=== PATIENT | male | born 1955 | race Caucasian/White ===

== ENCOUNTER 2019-05-08 00:14 | Inpatient (IN) | payer MEDICARE ==
[~2019-05-08] VITALS: Ht 188 cm; Wt 97.1 kg
[2019-05-09] MEDS ORDERED: ACETAMINOPHEN 325 MG TABLET PO PRN (15:15)
[2019-05-09 15:42] VITALS: BP 125/75
[2019-05-09 15:57] VITALS: BP 124/63
[2019-05-09] MEDS: GlipiZIDE 5 MG TABLET PO SCH (17:21)
[2019-05-09 18:26] LABS: GLUCOMETER DEV NAME(LOC) 2WR.2; GLUCOSE,POINT OF CARE 162 MG/DL (70-110)
[2019-05-09] MEDS ORDERED: PNEUMOCOCCAL VACCINE POLYVALENT 0.5 ML VIAL [PPSV23] IM ONE (20:15)
[2019-05-09 20:30] VITALS: BP 125/89
[2019-05-09] MEDS: CARVEDILOL 6.25 MG TABLET PO SCH (20:43)
[2019-05-09] MEDS: DOCUSATE SODIUM 100 MG CAPSULE PO SCH (20:43)
[2019-05-09] MEDS: SENNA 187 MG TABLET PO SCH (20:43)
[2019-05-09] MEDS: ATORVASTATIN CALCIUM 40 MG TABLET PO SCH (20:43)
[2019-05-09 21:25] LABS: GLUCOMETER DEV NAME(LOC) 2WR.2; GLUCOSE,POINT OF CARE 152 MG/DL (70-110)
[2019-05-09 23:30] VITALS: BP 105/68
[2019-05-10 05:45] LABS: GLUCOMETER DEV NAME(LOC) 2WR.1C; GLUCOSE,POINT OF CARE 138 MG/DL (70-110)
[2019-05-10 07:05] LABS: BASOPHILS % (AUTO) 0.7 % (0.0-2.0); EOSINOPHILS % (AUTO) 1.9 % (1.0-6.0); HEMATOCRIT 44.4 % (41-53); HEMOGLOBIN 15.8 g/dL (13.5-17.5); LYMPHOCYTES # (AUTO) 2.2 K/uL (1.0-4.8); LYMPHOCYTES % (AUTO) 39.6 % (22.0-44.0); MEAN CORPUSCULAR HEMOGLOBIN 31.7 pg (26.0-34.0); MEAN CORPUSCULAR HGB CONC 35.6 G/dL (31.0-37.0); MEAN CORPUSCULAR VOLUME 89 fL (80-100); MONOCYTES # (AUTO) 0.4 K/uL (0.1-1.0); MONOCYTES % (AUTO) 7.4 % (2.0-9.0); NEUTROPHILS # (AUTO) 2.8 K/uL (1.8-7.7); NEUTROPHILS % (AUTO) 50.4 % (40.0-70.0); PLATELET COUNT (AUTO) 143 K/uL (150-450); RED BLOOD CELL COUNT(AUTO) 4.98 MIL/uL (4.50-5.90); RED CELL DISTRIBUTION WIDTH 13.9 % (11.5-14.5)
[2019-05-10 07:27] LABS: ALBUMIN 3.1 g/dL (3.4-5.0); BILIRUBIN,TOTAL 0.6 mg/dL (0.1-1.0); CREATININE 1.23 mg/dL (0.60-1.30); TOTAL PROTEIN, SERUM 6.4 g/dL (6.4-8.2)
[2019-05-10 07:35] LABS: CALCIUM, TOTAL 9.1 mg/dL (8.8-10.5)
[2019-05-10 07:45] VITALS: BP 108/71
[2019-05-10] MEDS: GlipiZIDE 5 MG TABLET PO SCH ×2 (08:19→16:53)
[2019-05-10] MEDS: FLUoxetine HCL 20 MG CAPSULE PO SCH (09:00)
[2019-05-10] MEDS: ASPIRIN 81 MG EC TABLET PO SCH (10:12)
[2019-05-10] MEDS: CARVEDILOL 6.25 MG TABLET PO SCH ×2 (10:12→20:48)
[2019-05-10] MEDS: LISINOPRIL 5 MG TABLET PO SCH (10:12)
[2019-05-10] MEDS: FUROSEMIDE 20 MG TABLET PO SCH (10:12)
[2019-05-10] MEDS: DOCUSATE SODIUM 100 MG CAPSULE PO SCH ×2 (10:13→20:48)
[2019-05-10] MEDS ORDERED: DEXTROSE 50%-WATER 25 GM/50 ML SYRINGE IVP PRN (12:00)
[2019-05-10 16:00] VITALS: BP 103/71
[2019-05-10] MEDS: MetFORMIN HCL 500 MG TABLET PO SCH (16:53)
[2019-05-10 17:30] LABS: GLUCOMETER DEV NAME(LOC) 2WR.1C; GLUCOSE,POINT OF CARE 124 MG/DL (70-110)
[2019-05-10 18:22] LABS: GLUCOMETER DEV NAME(LOC) 2WR.1C; GLUCOSE,POINT OF CARE 120 MG/DL (70-110)
[2019-05-10] MEDS: ATORVASTATIN CALCIUM 40 MG TABLET PO SCH (20:48)
[2019-05-10] MEDS: SENNA 187 MG TABLET PO SCH (20:48)
[2019-05-10 20:53] VITALS: BP 116/63
[2019-05-10 21:51] LABS: GLUCOMETER DEV NAME(LOC) 2WR.2; GLUCOSE,POINT OF CARE 114 MG/DL (70-110)
[2019-05-11 06:00] VITALS: BP 133/69
[2019-05-11 06:34] LABS: GLUCOMETER DEV NAME(LOC) 2WR.1C; GLUCOSE,POINT OF CARE 142 MG/DL (70-110)
[2019-05-11] MEDS: INSULIN LISPRO 100 UNITS/ML SQ PRN (08:06)
[2019-05-11] MEDS: DOCUSATE SODIUM 100 MG CAPSULE PO SCH ×2 (08:08→20:37)
[2019-05-11] MEDS: FUROSEMIDE 20 MG TABLET PO SCH (08:08)
[2019-05-11] MEDS: GlipiZIDE 5 MG TABLET PO SCH ×2 (08:08→16:57)
[2019-05-11] MEDS: LISINOPRIL 5 MG TABLET PO SCH (08:08)
[2019-05-11] MEDS: CARVEDILOL 6.25 MG TABLET PO SCH ×2 (08:08→20:37)
[2019-05-11] MEDS: MetFORMIN HCL 500 MG TABLET PO SCH ×2 (08:08→16:57)
[2019-05-11] MEDS: FLUoxetine HCL 20 MG CAPSULE PO SCH (08:09)
[2019-05-11] MEDS: ASPIRIN 81 MG EC TABLET PO SCH (08:09)
[2019-05-11 09:02] VITALS: BP 112/80
[2019-05-11 13:13] LABS: GLUCOMETER DEV NAME(LOC) 2WR.2; GLUCOSE,POINT OF CARE 96 MG/DL (70-110)
[2019-05-11 16:00] VITALS: BP 148/97
[2019-05-11 18:57] LABS: GLUCOMETER DEV NAME(LOC) 2WR.1C; GLUCOSE,POINT OF CARE 128 MG/DL (70-110)
[2019-05-11 20:31] VITALS: BP 111/59
[2019-05-11] MEDS: SENNA 187 MG TABLET PO SCH (20:37)
[2019-05-11] MEDS: ATORVASTATIN CALCIUM 40 MG TABLET PO SCH (20:37)
[2019-05-11 21:44] LABS: GLUCOMETER DEV NAME(LOC) 2WR.2; GLUCOSE,POINT OF CARE 114 MG/DL (70-110)
[2019-05-11 23:30] VITALS: BP 94/54
[2019-05-12 05:48] LABS: GLUCOMETER DEV NAME(LOC) 2WR.1C; GLUCOSE,POINT OF CARE 122 MG/DL (70-110)
[2019-05-12] MEDS: MetFORMIN HCL 500 MG TABLET PO SCH ×2 (07:45→16:52)
[2019-05-12] MEDS: GlipiZIDE 5 MG TABLET PO SCH ×2 (07:45→16:52)
[2019-05-12] MEDS: FLUoxetine HCL 20 MG CAPSULE PO SCH (08:44)
[2019-05-12] MEDS: CARVEDILOL 6.25 MG TABLET PO SCH ×2 (08:44→20:23)
[2019-05-12] MEDS: LISINOPRIL 5 MG TABLET PO SCH (08:44)
[2019-05-12] MEDS: ASPIRIN 81 MG EC TABLET PO SCH (08:45)
[2019-05-12] MEDS: FUROSEMIDE 20 MG TABLET PO SCH (08:45)
[2019-05-12] MEDS: DOCUSATE SODIUM 100 MG CAPSULE PO SCH ×2 (08:45→20:24)
[2019-05-12 08:47] VITALS: BP 131/72
[2019-05-12 12:47] LABS: GLUCOMETER DEV NAME(LOC) 2WR.2; GLUCOSE,POINT OF CARE 140 MG/DL (70-110)
[2019-05-12 17:44] VITALS: BP 107/60
[2019-05-12] MEDS: ATORVASTATIN CALCIUM 40 MG TABLET PO SCH (20:23)
[2019-05-12] MEDS: MELATONIN 5 MG TABLET PO PRN (20:23)
[2019-05-12] MEDS: SENNA 187 MG TABLET PO SCH (20:24)
[2019-05-12 21:29] LABS: GLUCOMETER DEV NAME(LOC) 2WR.2; GLUCOSE,POINT OF CARE 124 MG/DL (70-110)
[2019-05-12 22:16] LABS: GLUCOMETER DEV NAME(LOC) 2WR.1C; GLUCOSE,POINT OF CARE 122 MG/DL (70-110)
[2019-05-13 05:54] LABS: GLUCOMETER DEV NAME(LOC) 2WR.2; GLUCOSE,POINT OF CARE 136 MG/DL (70-110)
[2019-05-13 06:28] VITALS: BP 127/74
[2019-05-13 07:55] VITALS: BP 117/61
[2019-05-13] MEDS: ASPIRIN 81 MG EC TABLET PO SCH (08:43)
[2019-05-13] MEDS: CARVEDILOL 6.25 MG TABLET PO SCH ×2 (08:43→21:26)
[2019-05-13] MEDS: DOCUSATE SODIUM 100 MG CAPSULE PO SCH ×2 (08:43→21:00)
[2019-05-13] MEDS: MetFORMIN HCL 500 MG TABLET PO SCH ×2 (08:43→16:28)
[2019-05-13] MEDS: LISINOPRIL 5 MG TABLET PO SCH (08:44)
[2019-05-13] MEDS: FUROSEMIDE 20 MG TABLET PO SCH (08:44)
[2019-05-13] MEDS: GlipiZIDE 5 MG TABLET PO SCH ×2 (08:44→16:28)
[2019-05-13] MEDS: FLUoxetine HCL 20 MG CAPSULE PO SCH (08:44)
[2019-05-13] MEDS: INSULIN LISPRO 100 UNITS/ML SQ PRN (12:34)
[2019-05-13 16:20] VITALS: BP 120/67
[2019-05-13 18:06] LABS: GLUCOMETER DEV NAME(LOC) 2WR.2; GLUCOSE,POINT OF CARE 110 MG/DL (70-110)
[2019-05-13] MEDS: SENNA 187 MG TABLET PO SCH (21:00)
[2019-05-13] MEDS: MELATONIN 5 MG TABLET PO PRN (21:26)
[2019-05-13] MEDS: ATORVASTATIN CALCIUM 40 MG TABLET PO SCH (21:26)
[2019-05-13 21:35] VITALS: BP 132/58
[2019-05-13 22:35] LABS: GLUCOMETER DEV NAME(LOC) 2WR.1C; GLUCOSE,POINT OF CARE 165 MG/DL (70-110)
[2019-05-13 22:36] LABS: GLUCOMETER DEV NAME(LOC) 2WR.1C; GLUCOSE,POINT OF CARE 117 MG/DL (70-110)
[2019-05-14 05:33] VITALS: BP 106/68
[2019-05-14 06:00] LABS: GLUCOMETER DEV NAME(LOC) 2WR.2; GLUCOSE,POINT OF CARE 109 MG/DL (70-110)
[2019-05-14 08:05] VITALS: BP 114/69
[2019-05-14] MEDS: DOCUSATE SODIUM 100 MG CAPSULE PO SCH ×2 (09:00→20:41)
[2019-05-14] MEDS: ASPIRIN 81 MG EC TABLET PO SCH (10:09)
[2019-05-14] MEDS: FUROSEMIDE 20 MG TABLET PO SCH (10:10)
[2019-05-14] MEDS: LISINOPRIL 5 MG TABLET PO SCH (10:10)
[2019-05-14] MEDS: CARVEDILOL 6.25 MG TABLET PO SCH ×2 (10:10→20:41)
[2019-05-14] MEDS: MetFORMIN HCL 500 MG TABLET PO SCH ×2 (10:10→17:21)
[2019-05-14] MEDS: GlipiZIDE 5 MG TABLET PO SCH ×2 (10:10→17:21)
[2019-05-14] MEDS: FLUoxetine HCL 20 MG CAPSULE PO SCH (10:10)
[2019-05-14 12:22] LABS: GLUCOMETER DEV NAME(LOC) 2WR.2; GLUCOSE,POINT OF CARE 190 MG/DL (70-110)
[2019-05-14] MEDS: INSULIN LISPRO 100 UNITS/ML SQ PRN ×2 (13:06→20:42)
[2019-05-14] MEDS ORDERED: *PATIENT'S OWN MED [ENTER DRUG, DOSE, FREQUENCY IN COMMENTS] CLINICAL ONE (16:15)
[2019-05-14] MEDS ORDERED: EXENATIDE SQ SCH (17:00)
[2019-05-14 17:05] VITALS: BP 108/70
[2019-05-14 18:36] LABS: GLUCOMETER DEV NAME(LOC) 2WR.1C; GLUCOSE,POINT OF CARE 117 MG/DL (70-110)
[2019-05-14 20:38] VITALS: BP 129/77
[2019-05-14] MEDS: ATORVASTATIN CALCIUM 40 MG TABLET PO SCH (20:41)
[2019-05-14] MEDS: SENNA 187 MG TABLET PO SCH (20:41)
[2019-05-14 21:49] LABS: GLUCOMETER DEV NAME(LOC) 2WR.2; GLUCOSE,POINT OF CARE 185 MG/DL (70-110)
[2019-05-14] MEDS ORDERED: WATER FOR IRRIGATION,STERILE 1000 ML SOLUTION BOTTLE ONE (22:05)
[2019-05-14] MEDS: MELATONIN 5 MG TABLET PO PRN (22:11)
[2019-05-14 23:42] VITALS: BP 110/60
[2019-05-15 06:24] LABS: GLUCOMETER DEV NAME(LOC) 2WR.1C; GLUCOSE,POINT OF CARE 118 MG/DL (70-110)
[2019-05-15 07:20] VITALS: BP 105/80
[2019-05-15] MEDS: GlipiZIDE 5 MG TABLET PO SCH ×2 (07:43→16:52)
[2019-05-15] MEDS: MetFORMIN HCL 500 MG TABLET PO SCH ×2 (07:44→17:33)
[2019-05-15] MEDS: ASPIRIN 81 MG EC TABLET PO SCH (07:45)
[2019-05-15] MEDS: DOCUSATE SODIUM 100 MG CAPSULE PO SCH ×2 (07:45→20:42)
[2019-05-15] MEDS: LISINOPRIL 5 MG TABLET PO SCH (07:45)
[2019-05-15] MEDS: CARVEDILOL 6.25 MG TABLET PO SCH ×2 (07:45→20:42)
[2019-05-15] MEDS: FLUoxetine HCL 20 MG CAPSULE PO SCH (07:45)
[2019-05-15] MEDS: FUROSEMIDE 20 MG TABLET PO SCH (07:45)
[2019-05-15 13:04] LABS: GLUCOMETER DEV NAME(LOC) 2WR.2; GLUCOSE,POINT OF CARE 88 MG/DL (70-110)
[2019-05-15 16:00] VITALS: BP 127/80
[2019-05-15 17:37] LABS: GLUCOMETER DEV NAME(LOC) 2WR.2; GLUCOSE,POINT OF CARE 115 MG/DL (70-110)
[2019-05-15] MEDS: ATORVASTATIN CALCIUM 40 MG TABLET PO SCH (20:42)
[2019-05-15] MEDS: SENNA 187 MG TABLET PO SCH (20:43)
[2019-05-15] MEDS: MELATONIN 5 MG TABLET PO PRN (20:43)
[2019-05-15 21:00] VITALS: BP 99/75
[2019-05-15 21:24] LABS: GLUCOMETER DEV NAME(LOC) 2WR.2; GLUCOSE,POINT OF CARE 75 MG/DL (70-110)
[2019-05-16] MEDS ORDERED: CARV6 PO (04:23)
[2019-05-16] MEDS ORDERED: ATOR40TA28 PO (04:23)
[2019-05-16] MEDS ORDERED: ASPI-728 PO (04:23)
[2019-05-16] MEDS ORDERED: GLIP5 PO (04:24)
[2019-05-16] MEDS ORDERED: FLUO-191 PO (04:24)
[2019-05-16] MEDS ORDERED: DOCU-275 PO (04:24)
[2019-05-16] MEDS ORDERED: SENN8.6T90 PO (04:24)
[2019-05-16] MEDS ORDERED: METF-960 PO (04:24)
[2019-05-16] MEDS ORDERED: FURO20 PO (04:24)
[2019-05-16] MEDS ORDERED: LISI-660 PO (04:24)
[2019-05-16 05:00] VITALS: BP 95/42
[2019-05-16 05:53] LABS: GLUCOMETER DEV NAME(LOC) 2WR.1C; GLUCOSE,POINT OF CARE 94 MG/DL (70-110)
[2019-05-16 07:27] VITALS: BP 99/65
[2019-05-16] MEDS: MetFORMIN HCL 500 MG TABLET PO SCH ×2 (07:56→16:48)
[2019-05-16] MEDS: GlipiZIDE 5 MG TABLET PO SCH ×3 (07:57→16:48)
[2019-05-16] MEDS: ASPIRIN 81 MG EC TABLET PO SCH (07:57)
[2019-05-16] MEDS: DOCUSATE SODIUM 100 MG CAPSULE PO SCH ×2 (07:57→20:55)
[2019-05-16] MEDS: LISINOPRIL 5 MG TABLET PO SCH ×2 (07:58→09:26)
[2019-05-16] MEDS: FLUoxetine HCL 20 MG CAPSULE PO SCH (07:58)
[2019-05-16 09:15] VITALS: BP 104/78
[2019-05-16] MEDS: CARVEDILOL 6.25 MG TABLET PO SCH ×2 (09:25→20:55)
[2019-05-16] MEDS: FUROSEMIDE 20 MG TABLET PO SCH (09:25)
[2019-05-16 13:20] LABS: GLUCOMETER DEV NAME(LOC) 2WR.2; GLUCOSE,POINT OF CARE 88 MG/DL (70-110)
[2019-05-16 15:20] VITALS: BP 102/66
[2019-05-16 18:43] LABS: GLUCOMETER DEV NAME(LOC) 2WR.1C; GLUCOSE,POINT OF CARE 87 MG/DL (70-110)
[2019-05-16] MEDS: ATORVASTATIN CALCIUM 40 MG TABLET PO SCH (20:55)
[2019-05-16] MEDS: SENNA 187 MG TABLET PO SCH (20:55)
[2019-05-16] MEDS: MELATONIN 5 MG TABLET PO PRN (20:56)
[2019-05-16 23:18] VITALS: BP 95/55
[2019-05-17 05:07] LABS: GLUCOMETER DEV NAME(LOC) 2WR.1C; GLUCOSE,POINT OF CARE 117 MG/DL (70-110)
[2019-05-17 05:39] LABS: GLUCOMETER DEV NAME(LOC) 2WR.2; GLUCOSE,POINT OF CARE 129 MG/DL (70-110)
[2019-05-17 07:30] VITALS: BP 92/53
[2019-05-17] MEDS: GlipiZIDE 5 MG TABLET PO SCH ×2 (08:06→16:48)
[2019-05-17] MEDS: MetFORMIN HCL 500 MG TABLET PO SCH ×2 (08:06→16:49)
[2019-05-17] MEDS: ASPIRIN 81 MG EC TABLET PO SCH (08:07)
[2019-05-17] MEDS: FLUoxetine HCL 20 MG CAPSULE PO SCH (08:08)
[2019-05-17] MEDS: DOCUSATE SODIUM 100 MG CAPSULE PO SCH ×2 (08:08→20:30)
[2019-05-17] MEDS: CARVEDILOL 6.25 MG TABLET PO SCH (09:00)
[2019-05-17] MEDS: LISINOPRIL 5 MG TABLET PO SCH (09:00)
[2019-05-17] MEDS: FUROSEMIDE 20 MG TABLET PO SCH (09:00)
[2019-05-17 13:27] LABS: GLUCOMETER DEV NAME(LOC) 2WR.1C; GLUCOSE,POINT OF CARE 63 MG/DL (70-110)
[2019-05-17 15:20] VITALS: BP 104/66
[2019-05-17 17:10] LABS: GLUCOMETER DEV NAME(LOC) 2WR.2; GLUCOSE,POINT OF CARE 111 MG/DL (70-110)
[2019-05-17 17:11] LABS: GLUCOMETER DEV NAME(LOC) 2WR.2; GLUCOSE,POINT OF CARE 99 MG/DL (70-110)
[2019-05-17] MEDS: ATORVASTATIN CALCIUM 40 MG TABLET PO SCH (20:30)
[2019-05-17] MEDS: MELATONIN 5 MG TABLET PO PRN (20:31)
[2019-05-17] MEDS: SENNA 187 MG TABLET PO SCH (20:31)
[2019-05-17 21:00] VITALS: BP 101/66
[2019-05-17] MEDS ORDERED: CARVEDILOL 3.125 MG TABLET PO SCH (21:00)
[2019-05-17 21:29] LABS: GLUCOMETER DEV NAME(LOC) 2WR.2; GLUCOSE,POINT OF CARE 123 MG/DL (70-110)
[2019-05-17] MEDS ORDERED: CARV3 PO (22:40)
[2019-05-17] MEDS ORDERED: EXEN2PEN SQ (23:59)
[2019-05-17] MEDS ORDERED: INSU100V SQ (23:59)
[2019-05-18 05:50] VITALS: BP 104/66
[2019-05-18 06:20] LABS: GLUCOMETER DEV NAME(LOC) 2WR.1C; GLUCOSE,POINT OF CARE 89 MG/DL (70-110)
[2019-05-18 07:20] VITALS: BP 92/62
[2019-05-18] MEDS: MetFORMIN HCL 500 MG TABLET PO SCH ×2 (07:30→08:56)
[2019-05-18] MEDS: GlipiZIDE 5 MG TABLET PO SCH (08:55)
[2019-05-18] MEDS: DOCUSATE SODIUM 100 MG CAPSULE PO SCH (08:56)
[2019-05-18] MEDS: ASPIRIN 81 MG EC TABLET PO SCH (08:56)
[2019-05-18] MEDS: FLUoxetine HCL 20 MG CAPSULE PO SCH (08:56)
[2019-05-18] MEDS ORDERED: FUROSEMIDE 20 MG TABLET PO SCH (09:00)
[2019-05-18] MEDS ORDERED: CARVEDILOL 3.125 MG TABLET PO SCH (09:00)
[2019-05-18 09:17] LABS: GLUCOMETER DEV NAME(LOC) 2WR.2; GLUCOSE,POINT OF CARE 160 MG/DL (70-110)
[2019-05-18 13:45] LABS: GLUCOMETER DEV NAME(LOC) 2WR.1C; GLUCOSE,POINT OF CARE 72 MG/DL (70-110)
[2019-05-18 13:46] LABS: GLUCOMETER DEV NAME(LOC) 2WR.1C; GLUCOSE,POINT OF CARE 58 MG/DL (70-110)
== END 2019-05-18 15:30 | disposition home or self-care (01) | DRG 56 ==
LOC: 2WR 05-09 13:26
PROVIDERS: ADMIT Physical Medicine & Rehabilitation; ATTEND Physical Medicine & Rehabilitation
PROC: 3E0234Z Introduction of Serum, Toxoid and Vaccine into Muscle, Percutaneous Approach (ICD-10-PCS; principal; 2019-05-09)
DX: I69.351 Hemiplegia and hemiparesis following cerebral infarction affecting right dominant side (principal); I63.9 Cerebral infarction, unspecified; I61.9 Nontraumatic intracerebral hemorrhage, unspecified; I48.20 Chronic atrial fibrillation, unspecified; E11.9 Type 2 diabetes mellitus without complications; E78.5 Hyperlipidemia, unspecified; Z66 Do not resuscitate; G47.33 Obstructive sleep apnea (adult) (pediatric); E66.9 Obesity, unspecified; I11.0 Hypertensive heart disease with heart failure; I50.9 Heart failure, unspecified; T45.615A Adverse effect of thrombolytic drugs, initial encounter; Z81.1 Family history of alcohol abuse and dependence; Z83.3 Family history of diabetes mellitus; Z91.19 Patient's noncompliance with other medical treatment and regimen; Y92.89 Other specified places as the place of occurrence of the external cause; Z91.14 Patient's other noncompliance with medication regimen; Z82.49 Family history of ischemic heart disease and other diseases of the circulatory system; Z23 Encounter for immunization; Z68.27 Body mass index [BMI] 27.0-27.9, adult
CPT/HCPCS: 87081; 90732; 92507; 92508; 92523; 97112; 97116; 97150; 97162; 97166; 97530; 97535; 99366